=== PATIENT | male | born 1980 | race African-American/Black ===

== ENCOUNTER 2019-10-20 06:21 | Inpatient (IN) | payer MEDICAID ==
[~2019-10-20] VITALS: Ht 198.1 cm; Wt 157.3 kg
[2019-10-20] MEDS ORDERED: diltiazem-D5W 125mg/125ml 125 ML IV SCH ×3 (06:30→17:20)
[2019-10-20] MEDS ORDERED: nitroGLYCERIN-Tridil 50MG/D5W 250 ML IV PRN (06:30)
[2019-10-20] MEDS ORDERED: diltiazem-NS 100mg/100ml 100 ML IV SCH ×2 (06:33→10:55)
[2019-10-20] MEDS ORDERED: LORazepam 2 mg/ml vial IV ONE (06:40)
[2019-10-20] MEDS ORDERED: CefTRIAXone/D5W-Rocephin 1gm 50 ML IV ONE (06:50)
[2019-10-20 07:00] LABS: BASOPHILS # (AUTO) 0.1 X10'3 (0-0.2); BASOPHILS % (AUTO) 1.1 % (0-1); EOSINOPHILS % (AUTO) 0.5 % (0-6); HEMOGLOBIN 12.3 g/dl (14.0-17.9); LYMPHOCYTES % (AUTO) 10.1 % (21-51); MEAN CORPUSCULAR HEMOGLOBIN 25.9 PG (27.0-31.0); MEAN CORPUSCULAR HGB CONC 32.4 g/dL (33.0-36.5); MEAN CORPUSCULAR VOLUME 80.1 FL (78-98); MONOCYTES # (AUTO) 0.8 X10'3 (0-0.9); MONOCYTES % (AUTO) 8.7 % (2-12); NEUTROPHILS # (AUTO) 7.7 X10'3 (1.8-7.7); NEUTROPHILS % (AUTO) 79.6 % (42-75); PLATELET COUNT 244 X10'3 (140-440); RED BLOOD COUNT 4.75 X10'6 (4.70-6.10); RED CELL DISTRIBUTION WIDTH 18.9 % (11.5-14.5); WHITE BLOOD COUNT 9.6 X10'3 (4.5-11.0)
[2019-10-20 07:14] LABS: ALANINE AMINOTRANSFERASE 146 U/L (12-78); ALBUMIN 3.2 G/DL (3.4-5.0); ALBUMIN/GLOBULIN RATIO 0.7 (1.1-1.5); ALKALINE PHOSPHATASE 71 IU/L (46-116); ANION GAP 10 (8-16); ASPARTATE AMINO TRANSFERASE 95 U/L (10-37); BILIRUBIN,TOTAL 1.4 MG/DL (0.1-1.0); BLOOD UREA NITROGEN 17 MG/DL (7-18); BUN/CREATININE RATIO 15.2 (5.4-32.0); CALCIUM 8.3 MG/DL (8.5-10.1); CHLORIDE 109 MMOL/L (99-107); CREATININE 1.12 MG/DL (0.60-1.10); GLUCOSE 127 MG/DL (70-104); POTASSIUM 3.6 MMOL/L (3.5-5.1); SODIUM 142 MMOL/L (135-145); TOTAL CARBON DIOXIDE 22.8 MMOL/L (24-32); TOTAL PROTEIN 7.5 G/DL (6.4-8.2); eGFR 88 ML/MIN
[2019-10-20 07:26] LABS: ABG BASE EXCESS -1.8 mmol/L (-2.0-3.0); ABG HCO3 22.2 mmol/L (22.0-26.0); ABG OXYGEN SATURATION 94.6 % (95-98); ABG PCO2 (T) 35.2 mmHg (35.0-45.0); ABG PH (T) 7.417 (7.350-7.450); ABG PO2 (T) 72.6 mmHg (83-108); ALLEN'S TEST POSITIVE; FCOHb 0.6 % (0.5-1.5); FMetHb 0.2 % (0.3-1.12); FO2Hb 93.8 % (94-100); TOTAL HEMOGLOBIN 12.9 G/dl (14.0-17.9)
[2019-10-20 07:53] LABS: ANISOCYTOSIS 2+; PLATELET ESTIMATE NORMAL
[2019-10-20] MEDS ORDERED: furosemide 10 MG/1 ML 10ml inj IV ONE (08:10)
[2019-10-20] MEDS: oseltamivir phos 75mg capsule PO ONE ×2 (08:19→09:03)
[2019-10-20] MEDS ORDERED: azithromycin/NS 500mg/250ml 250 ML IV ONE (08:25)
[2019-10-20] MEDS: metoprolol tartrate 1mg/ml inj IV SCH ×3 (09:18→10:01)
[2019-10-20 09:39] LABS: URINE AMPHETAMINE SCREEN NEGATIVE (Neg); URINE BARBITUATE SCREEN NEGATIVE (Neg); URINE BENZODIAZEPINES SCREEN NEGATIVE (Neg); URINE CANNABINOID SCREEN POSITIVE (Neg); URINE COCAINE SCREEN NEGATIVE (Neg); URINE METHADONE SCREEN NEGATIVE (Neg); URINE OPIATE SCREEN NEGATIVE (Neg); URINE PHENCYCLIDINE SCREEN NEGATIVE (Neg)
[2019-10-20] MEDS ORDERED: ondansetron/PF 4mg/2ml inj IV PRN (10:20)
[2019-10-20] MEDS ORDERED: potassium CL 10mEq/100ml bag 100 ML IV PRN ×2 (10:20)
[2019-10-20] MEDS ORDERED: magnesium 2GM in 50ml NS 50 ML IV PRN (10:20)
[2019-10-20] MEDS ORDERED: acetaminophen 325mg tablet PO PRN ×2 (10:20)
[2019-10-20] MEDS ORDERED: metoclopramide 5 mg/ml inj IV PRN (10:20)
[2019-10-20] MEDS ORDERED: HYDROcodone/acetaminophen 5mg/325mg tablet PO PRN (10:20)
[2019-10-20] MEDS ORDERED: diphenhydrAMINE 50 mg/ml inj IV PRN (10:20)
[2019-10-20] MEDS ORDERED: magnesium hydroxide 30ml (MOM) UD suspension PO PRN (10:20)
[2019-10-20] MEDS ORDERED: HYDROcodone/acetaminophen 10/325mg tab PO PRN (10:20)
[2019-10-20] MEDS ORDERED: mag hydrox/Alum hydrox/simeth 30ml oral suspension PO PRN (10:20)
[2019-10-20] MEDS ORDERED: heparin 10,000 units/1 ML INJ IV ONE (10:20)
[2019-10-20] MEDS ORDERED: bisacodyl 10mg suppository rectal RC PRN (10:20)
[2019-10-20] MEDS ORDERED: magnesium 4gm in 100ml NS 100 ML IV PRN (10:20)
[2019-10-20] MEDS ORDERED: diphenhydrAMINE 25mg capsule PO PRN (10:20)
[2019-10-20] MEDS: heparin 25,000 UNIT/250ml bag 250 ML IV SCH ×2 (11:10→19:24)
[2019-10-20 11:27] LABS: HEMOGLOBIN A1C 5.7 % (4.5-6.2)
[2019-10-20 11:29] LABS: PHOSPHORUS 2.9 MG/DL (2.3-4.5)
[2019-10-20 11:59] LABS: PARTIAL THROMBOPLASTIN TIME 56 SECONDS (22-32)
--- NOTE | 2019-10-20 12:13 | NUR ---
Assumed care of patient. Patient A&Ox4, denies any CP, abd pain, NV. Patient on room air. Heparin drip going at 1000unit/hr and Nitro drip infusing at 70 rani/hr and diltiazem drip infusing at 20mg/hr. Heart rate in 120's, afib. Patient on hospital bed. lab a bedside getting repeat trop.
[2019-10-20] MEDS ORDERED: SPIR25TA5 PO (12:36)
[2019-10-20] MEDS ORDERED: LISI-600 PO (12:36)
[2019-10-20] MEDS ORDERED: HYDR-4070 PO (12:36)
[2019-10-20] MEDS ORDERED: AMLO10TA13 PO (12:36)
[2019-10-20] MEDS ORDERED: CARV-50 PO (12:36)
--- NOTE | 2019-10-20 13:13 | NUR ---
Patient's family at bedside. Patient sitting up and talking with family.
--- NOTE | 2019-10-20 13:49 | NUR ---
Spoke to Dr. Carey regarding floor/admit order of Nitro drip as titrateable. VO to d/c current titrate order and new order of Nitro drip fixed rate of 75mic/hr.
[2019-10-20] MEDS ORDERED: nitroGLYCERIN-Tridil 50MG/D5W 250 ML IV SCH (14:10)
--- NOTE | 2019-10-20 14:59 | NUR ---
Patient sitting up in bed eating lunch, no other needs at this time.
[2019-10-20 15:16] LABS: CLARITY,URINE SLIGHTLY CLOUDY (Clear); COLOR,URINE YELLOW (Yellow); GLUCOSE, URINE NEGATIVE (Neg); KETONES,URINE NEGATIVE (Neg); LEUKOCYTE ESTERASE ,URINE TRACE (Neg); NITRITES, URINE NEGATIVE (Neg); OCCULT BLOOD,URINE SMALL (Neg); PH,URINE 5.5 (4.8-8.0); PROTEIN,URINE 100 mg/dl (Neg)
[2019-10-20 15:26] LABS: UA COLLECTION TYPE CLN CATCH MIDSTREAM
[2019-10-20 15:27] LABS: MUCUS STRANDS MODERATE /LPF (Neg); SQUAMOUS EPITHELIAL CELL,UR FEW /LPF (FEW)
[2019-10-20 15:28] LABS: BACTERIA,URINE 2+ /HPF (Neg); WBC,URINE 0-4 /HPF (0-4)
--- NOTE | 2019-10-20 15:30 | NUR ---
Report received from Krista Student RN and supervising RN in ED, patient to go to [facility] 3018B.
[2019-10-20] MEDS: hydrALAZINE 25 MG tablet PO SCH ×2 (15:50→20:15)
[2019-10-20] MEDS ORDERED: digoxin 250mcg/ml 2ml ampule IV ONE (16:00)
--- NOTE | 2019-10-20 16:05 | NUR ---
Patient admitted to PCU 3018B. Patient brought up in hospital bed from the ED. Patient placed on bedside registered nurse cardiac. IV heparin and tridil infusing at ordered rates, cardizem had run dry on arrival to the room. Admit VS obtained, patient has no complaints at this time. Dr. Oro contacted for orders for tridil and cardizem gtts per PCU protocol. Attempting to clarify with Dr. Oro if he wants to start the patient on amiodarone gtt as well. Will continue to monitor patient.
[2019-10-20 16:10] VITALS: BP 143/89
--- NOTE | 2019-10-20 16:22 | NUR ---
promotional table spacer PAGER ID: [phone] MESSAGE: Jim [id number], Kassidy. Patient has been on Cardizem in the ED we need a new order for our floor please . Antonella [phone]
[2019-10-20] MEDS ORDERED: amiodarone 150mg/dext, iso-os 100 ML IV ONE (17:50)
[2019-10-20 18:00] VITALS: BP 172/134
[2019-10-20] MEDS: nitroGLYCERIN-Tridil 50MG/D5W 250 ML IV SCH (18:04)
[2019-10-20] MEDS: amiodarone/D5 360MG/200ML BAG 200 ML IV SCH ×2 (18:05→23:45)
[2019-10-20] MEDS: diltiazem-NS 100mg/100ml 100 ML IV SCH ×2 (18:09→20:15)
[2019-10-20] MEDS: carVEDilol 12.5mg tablet PO SCH (19:14)
[2019-10-20] MEDS: furosemide 40mg/4ml inj IV SCH (19:14)
[2019-10-20] MEDS: lisinopril 20mg tablet PO SCH (19:15)
[2019-10-20] MEDS: hydrALAZINE 20mg/ml inj. IV PRN (19:15)
[2019-10-20] MEDS: heparin 10,000 units/1 ML INJ IV PRN (19:21)
[2019-10-20 20:00] VITALS: BP 203/105
[2019-10-20] MEDS: oseltamivir phos 75mg capsule PO SCH (20:00)
[2019-10-20] MEDS ORDERED: carVEDilol 12.5mg tablet PO SCH (20:00)
[2019-10-20] MEDS: K and/or MAG REPLACEMENT MC SCH (20:00)
[2019-10-20] MEDS ORDERED: carvedilol 6.25mg tablet PO SCH (20:00)
[2019-10-20] MEDS ORDERED: temazepam 15mg capsule PO PRN (21:00)
[2019-10-20 22:00] VITALS: BP 182/129
[2019-10-21] VITALS (28 sets, daily range): BP systolic 109–182; BP diastolic 60–142
[2019-10-21] MEDS: digoxin 250mcg/ml 2ml ampule IV SCH ×2 (01:24→15:31)
[2019-10-21] MEDS: diltiazem-NS 100mg/100ml 100 ML IV SCH ×4 (01:24→18:44)
[2019-10-21 01:39] LABS: BASOPHILS # (AUTO) 0.1 X10'3 (0-0.2); BASOPHILS % (AUTO) 0.9 % (0-1); EOSINOPHILS # (AUTO) 0.1 X10'3 (0-0.9); EOSINOPHILS % (AUTO) 0.7 % (0-6); HEMATOCRIT 34.1 % (42.0-52.0); HEMOGLOBIN 11.1 g/dl (14.0-17.9); LYMPHOCYTES # (AUTO) 1.3 X10'3 (1.1-4.8); LYMPHOCYTES % (AUTO) 15.8 % (21-51); MEAN CORPUSCULAR HEMOGLOBIN 25.9 PG (27.0-31.0); MEAN CORPUSCULAR HGB CONC 32.5 g/dL (33.0-36.5); MEAN CORPUSCULAR VOLUME 79.7 FL (78-98); MEAN PLATELET VOLUME 8.5 FL (7.4-10.4); MONOCYTES % (AUTO) 12.1 % (2-12); NEUTROPHILS # (AUTO) 5.7 X10'3 (1.8-7.7); NEUTROPHILS % (AUTO) 70.5 % (42-75); PLATELET COUNT 241 X10'3 (140-440); RED BLOOD COUNT 4.27 X10'6 (4.70-6.10); RED CELL DISTRIBUTION WIDTH 18.7 % (11.5-14.5); WHITE BLOOD COUNT 8.1 X10'3 (4.5-11.0)
[2019-10-21 01:56] LABS: ALANINE AMINOTRANSFERASE 117 U/L (12-78); ALBUMIN 2.9 G/DL (3.4-5.0); ALBUMIN/GLOBULIN RATIO 0.7 (1.1-1.5); ALKALINE PHOSPHATASE 66 IU/L (46-116); ANION GAP 8 (8-16); ASPARTATE AMINO TRANSFERASE 61 U/L (10-37); BILIRUBIN,TOTAL 1.2 MG/DL (0.1-1.0); BLOOD UREA NITROGEN 17 MG/DL (7-18); CALCIUM 8.3 MG/DL (8.5-10.1); CHLORIDE 108 MMOL/L (99-107); CHOL/HDL RATIO 4.2 (0.00-4.99); CHOLESTEROL 97 MG/DL (0-200); CREATININE 1.31 MG/DL (0.60-1.10); GLUCOSE 123 MG/DL (70-104); HDL CHOLESTEROL 23 MG/DL (35-60); LDL CHOLESTEROL 60 MG/DL (50-100); MAGNESIUM 1.7 MG/DL (1.5-2.4); POTASSIUM 3.2 MMOL/L (3.5-5.1); SODIUM 141 MMOL/L (135-145); TRIGLYCERIDES 85 MG/DL (20-135); eGFR 73 ML/MIN
[2019-10-21 02:30] LABS: ANISOCYTOSIS 2+; LARGE PLATELETS FEW; MICROCYTOSIS 1+; PLATELET ESTIMATE NORMAL
[2019-10-21] MEDS: heparin 10,000 units/1 ML INJ IV PRN ×3 (02:56→17:25)
[2019-10-21] MEDS: heparin 25,000 UNIT/250ml bag 250 ML IV SCH ×2 (02:57→17:27)
[2019-10-21] MEDS: hydrALAZINE 20mg/ml inj. IV PRN ×3 (03:49→17:50)
--- NOTE | 2019-10-21 04:42 | NUR ---
Paged hospitalist, Dr. Whiting, regarding the patient. Patient's blood pressure has not been controlled on his multiple drips and IVP medications. PAGER ID: [phone] MESSAGE: Stephanie contreras [phone]. Robbi Elizondo [id number]. Pt is on Cardizem, heparin, amiodarone, and tridil drips plus IVP hydralazine. Pressures are still in the 170/100 up to 200/140's. Please advise? Thanks!
[2019-10-21] MEDS ORDERED: spironolactone 25 MG tablet PO STA (04:47)
--- NOTE | 2019-10-21 05:00 | NUR ---
Dr. Whiting gave order for one time dose of PO spironolactone. Ordered and verified with pharmacy. Orders to keep all drips at current rate. Discussed with credit charge authorizer, concern that patient's blood pressure is consistently elevated despite drips and PRN hydralazine. coremaker floor from ICU came and assessed patient, spoke with covering oil extractor [employer], plan to keep all drips at current rate, give PO medications and continue to monitor.
[2019-10-21] MEDS: nitroGLYCERIN-Tridil 50MG/D5W 250 ML IV SCH ×2 (05:22→15:34)
[2019-10-21] MEDS: amiodarone/D5 360MG/200ML BAG 200 ML IV SCH ×3 (05:58→15:36)
--- NOTE | 2019-10-21 06:52 | NUR ---
Problems reprioritized. Patient report given, questions answered & plan of care reviewed with Alan US.
--- NOTE | 2019-10-21 06:58 | NUR ---
Patient in room PCU 3018. I have received report from Stephanie Tran RN and had the opportunity to ask questions and assume patient care.
[2019-10-21] MEDS: lisinopril 20mg tablet PO SCH ×2 (07:16→19:34)
[2019-10-21] MEDS: carVEDilol 12.5mg tablet PO SCH ×2 (07:16→19:32)
[2019-10-21] MEDS: potassium Cl 20 mEq SR tablet PO PRN ×3 (07:16→19:39)
[2019-10-21] MEDS: hydrALAZINE 25 MG tablet PO SCH ×3 (07:16→21:14)
[2019-10-21] MEDS: amLODIPine 5mg tablet PO SCH (07:16)
[2019-10-21] MEDS: furosemide 40mg/4ml inj IV SCH ×2 (07:17→19:37)
[2019-10-21] MEDS: magnesium Cl slow-release 64mg tablet PO PRN ×2 (07:17→19:39)
[2019-10-21] MEDS: K and/or MAG REPLACEMENT MC SCH ×2 (07:17→19:43)
[2019-10-21] MEDS: oseltamivir phos 75mg capsule PO SCH (07:56)
--- NOTE | 2019-10-21 07:57 | NUR ---
Held tamiflu order due to patient is negative for influenza
[2019-10-21] MEDS ORDERED: spironolactone 25 MG tablet PO SCH (08:00)
[2019-10-21] MEDS: CefTRIAXone/D5W-Rocephin 1gm 50 ML IV SCH (09:00)
[2019-10-21] MEDS: amiodarone 200mg tablet PO SCH ×2 (13:18→19:36)
--- NOTE | 2019-10-21 14:24 | NUR ---
cardiac diet consult: Pt PO 75-100% heart healthy diet. Pt/SO seen by JOYA for written/verbal heart healthy diet ed w/ RD contact information provided. Pt reports no current questions/concerns. Addendum: 10/21/19 at [address] Amended: Links added.
[2019-10-21] MEDS ORDERED: digoxin 250mcg/ml 2ml ampule IV ONE (15:20)
--- NOTE | 2019-10-21 18:31 | NUR ---
Problems reprioritized. Patient report given, questions answered & plan of care reviewed with Anna US.
[2019-10-21] MEDS ORDERED: nitroGLYCERIN-Tridil 50MG/D5W 250 ML IV SCH ×2 (19:20→21:35)
[2019-10-21] MEDS: spironolactone 25 MG tablet PO SCH (19:35)
[2019-10-21] MEDS: lactobacillus rhamnosus 10,000 MMU CELLS/CAPSULE PO SCH (19:35)
[2019-10-21] MEDS: isosorbide mononitrate 30mg tab.SR.24H PO SCH (19:41)
--- NOTE | 2019-10-21 21:45 | NUR ---
Spoke with Dr. Zaragoza because patient remains on Nitro drip @ 50mcg and current BP was 120/80 and patient had just received a dose of PO Hydalazine. Received order to decrease drip to 25mcg and re-eval over the next hour and if patient's BP remains lowered then to call him for a new order to decrease drip again to 10mcg
[2019-10-22] VITALS (12 sets, daily range): BP systolic 130–156; BP diastolic 68–120
[2019-10-22] MEDS: amiodarone/D5 360MG/200ML BAG 200 ML IV SCH (00:10)
[2019-10-22] MEDS: heparin 10,000 units/1 ML INJ IV PRN ×3 (00:17→16:13)
[2019-10-22] MEDS: heparin 25,000 UNIT/250ml bag 250 ML IV SCH ×4 (00:19→16:18)
[2019-10-22] MEDS: diltiazem-NS 100mg/100ml 100 ML IV SCH ×2 (00:39→08:38)
--- NOTE | 2019-10-22 05:12 | NUR ---
Student Medication Administration: For this medication-pass time frame, all medication were reviewed, dispensed, administered and documented per hospital policy by Maureen FOY. Student documentation: I have reviewed and agree with all interventions, assessments performed and documented by Maureen FOY.
--- NOTE | 2019-10-22 06:16 | NUR ---
Problems reprioritized. Patient report given, questions answered & plan of care reviewed with Alan US.
--- NOTE | 2019-10-22 06:54 | NUR ---
Patient in room PCU 3018. I have received report from Anna US and had the opportunity to ask questions and assume patient care.
[2019-10-22 07:07] LABS: BASOPHILS # (AUTO) 0.1 X10'3 (0-0.2); EOSINOPHILS # (AUTO) 0.1 X10'3 (0-0.9); EOSINOPHILS % (AUTO) 1.4 % (0-6); HEMATOCRIT 35.8 % (42.0-52.0); HEMOGLOBIN 11.7 g/dl (14.0-17.9); LYMPHOCYTES # (AUTO) 1.4 X10'3 (1.1-4.8); LYMPHOCYTES % (AUTO) 17.6 % (21-51); MEAN CORPUSCULAR HEMOGLOBIN 26.2 PG (27.0-31.0); MEAN CORPUSCULAR HGB CONC 32.7 g/dL (33.0-36.5); MEAN CORPUSCULAR VOLUME 80.1 FL (78-98); MEAN PLATELET VOLUME 8.7 FL (7.4-10.4); MONOCYTES # (AUTO) 1.1 X10'3 (0-0.9); MONOCYTES % (AUTO) 13.4 % (2-12); NEUTROPHILS # (AUTO) 5.5 X10'3 (1.8-7.7); NEUTROPHILS % (AUTO) 66.6 % (42-75); PLATELET COUNT 273 X10'3 (140-440); RED BLOOD COUNT 4.47 X10'6 (4.70-6.10); RED CELL DISTRIBUTION WIDTH 18.4 % (11.5-14.5); WHITE BLOOD COUNT 8.2 X10'3 (4.5-11.0)
[2019-10-22 07:36] LABS: ALANINE AMINOTRANSFERASE 96 U/L (12-78); ALBUMIN 2.7 G/DL (3.4-5.0); ALBUMIN/GLOBULIN RATIO 0.6 (1.1-1.5); ALKALINE PHOSPHATASE 60 IU/L (46-116); ANION GAP 8 (8-16); ASPARTATE AMINO TRANSFERASE 36 U/L (10-37); BILIRUBIN,TOTAL 0.8 MG/DL (0.1-1.0); BLOOD UREA NITROGEN 13 MG/DL (7-18); BUN/CREATININE RATIO 11.8 (5.4-32.0); CALCIUM 8.4 MG/DL (8.5-10.1); CHLORIDE 106 MMOL/L (99-107); GLUCOSE 106 MG/DL (70-104); MAGNESIUM 1.8 MG/DL (1.5-2.4); PHOSPHORUS 3.4 MG/DL (2.3-4.5); POTASSIUM 3.4 MMOL/L (3.5-5.1); SODIUM 140 MMOL/L (135-145); TOTAL CARBON DIOXIDE 26.4 MMOL/L (24-32); eGFR 90 ML/MIN
[2019-10-22] MEDS: amLODIPine 5mg tablet PO SCH (07:50)
[2019-10-22] MEDS: lisinopril 20mg tablet PO SCH ×2 (07:50→20:37)
[2019-10-22] MEDS: CefTRIAXone/D5W-Rocephin 1gm 50 ML IV SCH (07:51)
[2019-10-22] MEDS: carVEDilol 12.5mg tablet PO SCH ×3 (07:51→20:36)
[2019-10-22] MEDS: isosorbide mononitrate 30mg tab.SR.24H PO SCH (07:51)
[2019-10-22] MEDS: spironolactone 25 MG tablet PO SCH ×2 (07:51→20:38)
[2019-10-22] MEDS: lactobacillus rhamnosus 10,000 MMU CELLS/CAPSULE PO SCH ×2 (07:51→20:34)
[2019-10-22] MEDS: furosemide 40mg/4ml inj IV SCH ×2 (07:51→20:40)
[2019-10-22] MEDS: amiodarone 200mg tablet PO SCH ×2 (07:51→20:39)
[2019-10-22] MEDS: hydrALAZINE 25 MG tablet PO SCH ×3 (07:51→20:37)
[2019-10-22] MEDS ORDERED: digoxin 250mcg/ml 2ml ampule IV SCH (08:00)
[2019-10-22] MEDS: K and/or MAG REPLACEMENT MC SCH ×2 (08:00→20:00)
--- NOTE | 2019-10-22 08:00 | NUR ---
received orders to start digoxin PO 250mcg daily to start now and dc IV push digoxin, orders to titrate cardizem by 5mg q5dwkhs until complete and to titrate nitro 5mcg q1hour until off per dr. mcgraw
[2019-10-22] MEDS: magnesium Cl slow-release 64mg tablet PO PRN ×2 (08:38→20:34)
[2019-10-22] MEDS: potassium Cl 20 mEq SR tablet PO PRN ×3 (08:38→17:31)
[2019-10-22] MEDS: digoxin 250mcg (0.25mg) tablet PO SCH (08:40)
[2019-10-22 10:15] LABS: HBSAG SCREEN Negative (Negative); HEP A AB, IGM Negative (Negative); HEP B CORE AB, IGM Negative (Negative); HEPATITIS C ANTIBODY <0.1 s/co ratio (0.0-0.9)
[2019-10-22] MEDS: hydrALAZINE 20mg/ml inj. IV PRN ×2 (13:17→16:56)
--- NOTE | 2019-10-22 15:11 | NUR ---
received orders to start ativan 1mg po q6h prn for anxiety per dr. stout.
[2019-10-22] MEDS: LORazepam 1 MG tablet PO PRN (15:45)
--- NOTE | 2019-10-22 17:18 | NUR ---
received orders to increase coreg 25mg to TID start now, and increase Hydralazine PRN q3h, start Eliquis 5mg BID and to stop heparin when the bag is complete per Dr. Mustafa
[2019-10-22] MEDS: apixaban 5mg tablet PO SCH ×2 (17:31→19:20)
--- NOTE | 2019-10-22 18:35 | NUR ---
Problems reprioritized. Patient report given, questions answered & plan of care reviewed with Anna US.
[2019-10-23] MEDS: hydrALAZINE 20mg/ml inj. IV PRN ×3 (00:02→06:22)
[2019-10-23 02:00] VITALS: BP 173/106
[2019-10-23 06:00] VITALS: BP 156/115
--- NOTE | 2019-10-23 06:04 | NUR ---
Problems reprioritized. Patient report given, questions answered & plan of care reviewed with Alan US.
--- NOTE | 2019-10-23 06:10 | NUR ---
Patient in room PCU 3018. I have received report from Anna US and had the opportunity to ask questions and assume patient care.
[2019-10-23 06:33] LABS: BASOPHILS # (AUTO) 0.1 X10'3 (0-0.2); BASOPHILS % (AUTO) 0.8 % (0-1); EOSINOPHILS # (AUTO) 0.1 X10'3 (0-0.9); EOSINOPHILS % (AUTO) 1.1 % (0-6); HEMATOCRIT 41.3 % (42.0-52.0); HEMOGLOBIN 13.4 g/dl (14.0-17.9); LYMPHOCYTES # (AUTO) 1.4 X10'3 (1.1-4.8); LYMPHOCYTES % (AUTO) 14.6 % (21-51); MEAN CORPUSCULAR HEMOGLOBIN 25.7 PG (27.0-31.0); MEAN CORPUSCULAR HGB CONC 32.4 g/dL (33.0-36.5); MEAN CORPUSCULAR VOLUME 79.2 FL (78-98); MEAN PLATELET VOLUME 8.9 FL (7.4-10.4); MONOCYTES # (AUTO) 1.2 X10'3 (0-0.9); MONOCYTES % (AUTO) 12.7 % (2-12); NEUTROPHILS # (AUTO) 6.8 X10'3 (1.8-7.7); NEUTROPHILS % (AUTO) 70.8 % (42-75); PLATELET COUNT 348 X10'3 (140-440); RED BLOOD COUNT 5.22 X10'6 (4.70-6.10); RED CELL DISTRIBUTION WIDTH 18.3 % (11.5-14.5); WHITE BLOOD COUNT 9.6 X10'3 (4.5-11.0)
[2019-10-23 07:01] LABS: ALANINE AMINOTRANSFERASE 99 U/L (12-78); ALBUMIN/GLOBULIN RATIO 0.6 (1.1-1.5); ALKALINE PHOSPHATASE 69 IU/L (46-116); ANION GAP 10 (8-16); ASPARTATE AMINO TRANSFERASE 45 U/L (10-37); BILIRUBIN,TOTAL 0.7 MG/DL (0.1-1.0); BLOOD UREA NITROGEN 14 MG/DL (7-18); CALCIUM 9.2 MG/DL (8.5-10.1); CHLORIDE 105 MMOL/L (99-107); CREATININE 1.17 MG/DL (0.60-1.10); GLUCOSE 98 MG/DL (70-104); PHOSPHORUS 3.7 MG/DL (2.3-4.5); SODIUM 140 MMOL/L (135-145); TOTAL PROTEIN 7.9 G/DL (6.4-8.2); eGFR 84 ML/MIN
[2019-10-23] MEDS: CefTRIAXone/D5W-Rocephin 1gm 50 ML IV SCH (07:53)
[2019-10-23] MEDS: hydrALAZINE 25 MG tablet PO SCH ×3 (07:54→20:59)
[2019-10-23] MEDS: amLODIPine 5mg tablet PO SCH (07:54)
[2019-10-23] MEDS: carVEDilol 12.5mg tablet PO SCH ×2 (07:54→20:58)
[2019-10-23] MEDS: digoxin 250mcg (0.25mg) tablet PO SCH (07:54)
[2019-10-23] MEDS: amiodarone 200mg tablet PO SCH ×2 (07:54→20:58)
[2019-10-23] MEDS: lactobacillus rhamnosus 10,000 MMU CELLS/CAPSULE PO SCH ×2 (07:54→20:57)
[2019-10-23] MEDS: isosorbide mononitrate 30mg tab.SR.24H PO SCH (07:54)
[2019-10-23] MEDS: furosemide 40mg/4ml inj IV SCH ×2 (07:55→20:57)
[2019-10-23] MEDS: LORazepam 1 MG tablet PO PRN (07:55)
[2019-10-23] MEDS: lisinopril 20mg tablet PO SCH ×2 (07:55→20:59)
[2019-10-23] MEDS: apixaban 5mg tablet PO SCH ×2 (07:55→20:58)
[2019-10-23] MEDS: spironolactone 25 MG tablet PO SCH ×2 (07:55→20:59)
[2019-10-23] MEDS: K and/or MAG REPLACEMENT MC SCH ×2 (08:00→20:00)
[2019-10-23] MEDS ORDERED: carVEDilol 12.5mg tablet PO ONE (09:10)
[2019-10-23 11:00] VITALS: BP 121/81
[2019-10-23] MEDS ORDERED: iohexol 350MG/ML 100ml bottle IV ONE (11:10)
--- NOTE | 2019-10-23 12:11 | NUR ---
PAGER ID: [phone] MESSAGE: [id number] Justus Yi: CTA results are in, does not show any emboli, patient is still tachypneic do you want an ABG? Thanks Alan
--- NOTE | 2019-10-23 12:21 | NUR ---
Received orders for ABG per Dr. Oro
[2019-10-23 13:10] LABS: ABG BASE EXCESS -2.2 mmol/L (-2.0-3.0); ABG HCO3 20.1 mmol/L (22.0-26.0); ABG OXYGEN SATURATION 94.9 % (95-98); ABG PH (T) 7.473 (7.350-7.450); ABG PO2 (T) 69.5 mmHg (83-108); ALLEN'S TEST Yes; FCOHb 0.5 % (0.5-1.5); FMetHb 0.4 % (0.3-1.12); TOTAL HEMOGLOBIN 13.8 G/dl (14.0-17.9)
--- NOTE | 2019-10-23 13:18 | NUR ---
PAGER ID: [phone] MESSAGE: [id number] Justus Yi: JUDI DASILVA results are in, CO2 is 28.0, O2 69.5, previosuly CO2 35.2, O2 72.6. Thanks Alan
--- NOTE | 2019-10-23 15:14 | NUR ---
Patient will be transferred to ACCE unit room 309, Problems reprioritized. Patient report given, questions answered & plan of care reviewed with Emilie US.
--- NOTE | 2019-10-23 15:14 | NUR ---
Patient going to RM 309. I have received report from ABEBA Phillips and had the opportunity to ask questions and assume patient care.
[2019-10-23 16:00] VITALS: BP 133/88
--- NOTE | 2019-10-23 16:10 | NUR ---
Reviewed & agree with previous RN's assessment & documentation. Will continue to monitor closely.
[2019-10-23 18:00] VITALS: BP 118/89
--- NOTE | 2019-10-23 18:00 | NUR ---
Patient in room MED 308. I have received report from CHRISTINA US and had the opportunity to ask questions and assume patient care.
--- NOTE | 2019-10-23 18:29 | NUR ---
Problems reprioritized. Patient report given, questions answered & plan of care reviewed with ABEBA Ruiz.
[2019-10-23 22:00] VITALS: BP 132/58
[2019-10-24 02:00] VITALS: BP 143/104
[2019-10-24] MEDS: hydrALAZINE 25 MG tablet PO SCH ×4 (04:20→18:20)
[2019-10-24 05:31] LABS: BASOPHILS # (AUTO) 0.1 X10'3 (0-0.2); EOSINOPHILS # (AUTO) 0.2 X10'3 (0-0.9); EOSINOPHILS % (AUTO) 1.8 % (0-6); HEMATOCRIT 40.3 % (42.0-52.0); HEMOGLOBIN 13.3 g/dl (14.0-17.9); LYMPHOCYTES % (AUTO) 21.6 % (21-51); MEAN CORPUSCULAR HEMOGLOBIN 26.1 PG (27.0-31.0); MEAN PLATELET VOLUME 8.8 FL (7.4-10.4); MONOCYTES # (AUTO) 1.1 X10'3 (0-0.9); MONOCYTES % (AUTO) 11.5 % (2-12); NEUTROPHILS # (AUTO) 6.1 X10'3 (1.8-7.7); NEUTROPHILS % (AUTO) 64.1 % (42-75); PLATELET COUNT 374 X10'3 (140-440); RED CELL DISTRIBUTION WIDTH 18.3 % (11.5-14.5); WHITE BLOOD COUNT 9.4 X10'3 (4.5-11.0)
[2019-10-24 05:55] LABS: ALANINE AMINOTRANSFERASE 149 U/L (12-78); ALBUMIN/GLOBULIN RATIO 0.6 (1.1-1.5); ALKALINE PHOSPHATASE 76 IU/L (46-116); ANION GAP 9 (8-16); ASPARTATE AMINO TRANSFERASE 77 U/L (10-37); BILIRUBIN,TOTAL 0.7 MG/DL (0.1-1.0); BLOOD UREA NITROGEN 18 MG/DL (7-18); BUN/CREATININE RATIO 12.2 (5.4-32.0); CALCIUM 9.4 MG/DL (8.5-10.1); CHLORIDE 103 MMOL/L (99-107); CREATININE 1.47 MG/DL (0.60-1.10); GLUCOSE 91 MG/DL (70-104); MAGNESIUM 2.1 MG/DL (1.5-2.4); PHOSPHORUS 4.5 MG/DL (2.3-4.5); POTASSIUM 3.7 MMOL/L (3.5-5.1); SODIUM 139 MMOL/L (135-145); TOTAL CARBON DIOXIDE 26.6 MMOL/L (24-32); TOTAL PROTEIN 8.1 G/DL (6.4-8.2); eGFR 64 ML/MIN
[2019-10-24 06:00] VITALS: BP 148/103
--- NOTE | 2019-10-24 06:00 | NUR ---
Patient in room MED 308. I have received report from Sara SU and had the opportunity to ask questions and assume patient care.
--- NOTE | 2019-10-24 06:15 | NUR ---
Problems reprioritized. Patient report given, questions answered & plan of care reviewed with GURPREET US.
[2019-10-24] MEDS: furosemide 40mg/4ml inj IV SCH (07:51)
[2019-10-24] MEDS: digoxin 250mcg (0.25mg) tablet PO SCH (07:51)
[2019-10-24] MEDS: amLODIPine 5mg tablet PO SCH (07:51)
[2019-10-24] MEDS: spironolactone 25 MG tablet PO SCH ×2 (07:51→18:20)
[2019-10-24] MEDS: lactobacillus rhamnosus 10,000 MMU CELLS/CAPSULE PO SCH ×2 (07:51→18:13)
[2019-10-24] MEDS: carVEDilol 12.5mg tablet PO SCH ×2 (07:51→18:14)
[2019-10-24] MEDS: apixaban 5mg tablet PO SCH ×2 (07:51→18:13)
[2019-10-24] MEDS: lisinopril 20mg tablet PO SCH (07:52)
[2019-10-24] MEDS: isosorbide mononitrate 30mg tab.SR.24H PO SCH (07:52)
[2019-10-24] MEDS: amiodarone 200mg tablet PO SCH ×2 (07:52→18:15)
[2019-10-24] MEDS: CefTRIAXone/D5W-Rocephin 1gm 50 ML IV SCH (07:52)
[2019-10-24] MEDS: K and/or MAG REPLACEMENT MC SCH (08:00)
[2019-10-24 10:00] VITALS: BP 105/84
[2019-10-24] MEDS ORDERED: AMIO200T61 PO ×3 (11:05→13:56)
[2019-10-24] MEDS ORDERED: ISOS30TA6 PO (11:05)
[2019-10-24] MEDS ORDERED: FURO40TA4 PO (11:05)
[2019-10-24] MEDS ORDERED: CEFD300C3 PO (11:05)
[2019-10-24] MEDS ORDERED: APIX5TAB3 PO (11:05)
[2019-10-24] MEDS ORDERED: LAN0.25T PO (11:05)
[2019-10-24] MEDS ORDERED: CARV-50 PO (11:05)
[2019-10-24 15:00] VITALS: BP 122/85
--- NOTE | 2019-10-24 18:25 | NUR ---
Problems reprioritized. Patient report given, questions answered & plan of care reviewed with Willie US.
--- NOTE | 2019-10-24 18:36 | NUR ---
pt discharging, a/o x4, IV out, D/C instruction given with prior RN, pt ambulated off unit. no distress noted.
== END 2019-10-24 18:40 | disposition home or self-care (01) | DRG 139 ==
LOC: ER 06:22 → ED HOLD 10:16 → PCU 3S 16:10 → MED 3N 10-23 15:55
PROVIDERS: ADMIT Family Medicine; ATTEND Family Medicine
DX: J18.9 Pneumonia, unspecified organism (principal); J96.00 Acute respiratory failure, unspecified whether with hypoxia or hypercapnia; I50.23 Acute on chronic systolic (congestive) heart failure; I42.9 Cardiomyopathy, unspecified; Z68.41 Body mass index [BMI] 40.0-44.9, adult; I08.1 Rheumatic disorders of both mitral and tricuspid valves; N18.3 Chronic kidney disease, stage 3 (moderate); I48.0 Paroxysmal atrial fibrillation; E87.6 Hypokalemia; F41.9 Anxiety disorder, unspecified; I16.0 Hypertensive urgency; R74.0 Nonspecific elevation of levels of transaminase and lactic acid dehydrogenase [LDH]; E66.9 Obesity, unspecified; I13.0 Hypertensive heart and chronic kidney disease with heart failure and stage 1 through stage 4 chronic kidney disease, or unspecified chronic kidney disease; Z87.442 Personal history of urinary calculi; Z83.3 Family history of diabetes mellitus
CPT/HCPCS: 36415; 36600; 71045; 71275; 76700; 80053; 80061; 80074; 80162; 80305; 81001; 82803; 83036; 83605; 83735; 83880; 84100; 84145; 84443; 84484; 85018; 85025; 85610; 85730; 87040; 87081; 87088; 87502; 87503; 93005; 93306; 93975; 94660; 94760; 96365; 96367; 96375; 99291; G0378; J0282; J0360; J0456; J0696; J1160; J1644; J1940; J2060; J3490; Q9967